=== PATIENT | female | born 1955 | race Two or more races ===

== ENCOUNTER 2023-09-27 23:41 | Emergency (ER) | payer OTHER ==
[~2023-09-27] VITALS: Ht 160 cm; Wt 53.5 kg
[2023-09-28] MEDS ORDERED: SYNTHROID88 MCG PO (01:06)
[2023-09-28] MEDS ORDERED: LUMIGAN2.5 M1 OP (01:06)
[2023-09-28] MEDS ORDERED: CIPROFLOXACIN IN 5 % DEXTROSE 400 MG/200 ML PIGGYBAG IV ONE (02:00)
[2023-09-28] MEDS ORDERED: METRONIDAZOLE/SODIUM CHLORIDE 500 MG/100 ML PIGGYBACK IV ONE (02:00)
[2023-09-28] MEDS ORDERED: FAMOTIDINE/PF 20 MG in 0.9 % SODIUM CHLORIDE 8 ML IV PUSH STA (02:01)
[2023-09-28] MEDS ORDERED: KETOROLAC TROMETHAMINE 30 MG VIAL IV ONE (02:15)
[2023-09-28 02:33] LABS: HEMATOCRIT 35.1 % (36.0-45.00); MEAN CELL VOLUME 95.2 fL (80.00-100.00); MEAN CORPUSCULAR HEMOGLOBIN 32.6 pg (27.00-32.0); MEAN CORPUSCULAR HGB CONC 34.2 g/dl (32.0-36.0); PLATELET COUNT 175 K/uL (150-450); RED BLOOD COUNT 3.68 M/uL (4.00-6.00); RED CELL DISTRIBUTION WIDTH 13.1 % (11.5-14.5)
[2023-09-28 02:54] LABS: URINE APPEARANCE Clear; URINE BILIRRUBIN Negative (NEGATIVE); URINE BLOOD Negative; URINE COLOR Yellow; URINE GLUCOSE Negative (NEGATIVE); URINE LEUKOCYTE Trace; URINE NITRATE Negative; URINE PROTEIN Negative (NEGATIVE); URINE UROBILINOGEN 0.2 E.U./dl
[2023-09-28 02:57] LABS: ALBUMIN 3.7 gm/dL (3.4-5.0); BILIRUBIN TOTAL 0.52 mg/dL (0.3-1.2); CALCIUM 9.6 mg/dL (8.5-10.1); CREATININE SERUM 0.7 mg/dL (0.55-1.02); GFR 83.46; GLOBULINA 3.6 G/DL (2.4-3.5); POTASSIUM 3.77 mEq/L (3.5-5.1); TOTAL PROTEIN 7.3 gm/dL (6.4-8.2)
[2023-09-28 02:58] LABS: URINE BACTERIA 230.5 uL (0.0-1933); URINE RBC 4.3 uL (0.0-20.8)
[2023-09-28] MEDS ORDERED: METRONIDAZOLE500 MG PO (05:18)
[2023-09-28] MEDS ORDERED: CIPRO500 MG PO (05:18)
[2023-09-28] MEDS ORDERED: PEPCID AC20 MG PO (05:18)
[2023-09-28] MEDS ORDERED: LEVSIN/SL0.125 MG SL (05:18)
== END 2023-09-28 05:26 | disposition home or self-care (01) ==
LOC: ER 23:42
PROVIDERS: General Practice
DX: K57.92 Diverticulitis of intestine, part unspecified, without perforation or abscess without bleeding (principal); R10.32 Left lower quadrant pain; R10.9 Unspecified abdominal pain; E03.8 Other specified hypothyroidism; Z88.0 Allergy status to penicillin
CPT/HCPCS: 36415; 74176; 96365; 99284; J0744; J1885; J3490 ×2